=== PATIENT | female | born 1935 | race Caucasian/White ===

== ENCOUNTER → 2017-01-16 | Outpatient (CLI) | payer MEDICARE, BC ==
[~2017-01-16] MED LIST: ALBUTEROL17 GM INH; ATACAND PO; EFFEXOR PO; SKELAXIN PO; VICODIN 5/500 T1 TAB PO
--- NOTE | ~2017-01-16 | US128 ---
[id number] [facility] [address] [place], [place] [address] [id number] O MR#: [id number] [facility] #: [id number] NAME: CHANDA ALMAZAN : 1935 SEX: F STUDY DATE/TIME: 01/16/2017 13:46 UNIT: [facility] ROOM: STUDY DESCRIPTION: Thyroid Attending Physician: Jerica Rojas M.D. Referring Physician: Jerica Rojas M.D. Ordering Physician: Jerica Rojas M.D. Primary Care Physician: Jerica Rojas M.D. MEDICAL IMAGING REPORT This report is preliminary unless electronic signature is present EXAM Thyroid ultrasound. INDICATIONS Difficulty swallowing and neck pain. Nodule seen on ultrasound from 2008. TECHNIQUE Rendon-scale and color Doppler sonographic images were obtained through the thyroid gland. FINDINGS Right lobe of the thyroid gland is enlarged measuring 1.6 x 5 x 2.2 cm and left lobe measuring 1.7 x 4.5 x 2.5 cm. Isthmus measures up to a centimeter in thickness. Thyroid parenchyma is heterogeneous. There is a solid nodule seen within the superior pole of the right lobe of thyroid gland measuring 7 x 8 x 7 mm. More inferiorly, there is a dominant solid nodule measuring 1.1 x 1.3 x 1.5 cm, and medially, there is an iso to mildly hyperechoic nodule with a hypoechoic rim measuring 7 x 6 x 4 mm. Within the left lobe of the thyroid gland, there is a predominantly cystic nodule measuring 7 x 8 x 5 mm. There is a solid nodule measuring up to 1.3 x 1.4 x 1 cm. It is essentially isoechoic to thyroid parenchyma with a hypoechoic rim. Deep to this nodule, principal archaeologist measures an additional nodule, which measures up to 1.5 x 1.5 x 1.2 cm. IMPRESSION 1. The patient has multiple thyroid nodules. The dominant nodule within the right lobe of the thyroid gland measures 1.1 x 1.3 x 1.5 cm. It was present on the prior exam from November 2008. I suspect it really is not significantly changed in size when compared to that examination. An additional 2 nodules within the right lobe of the thyroid gland were not clearly identified on prior study and do not meet size criteria for percutaneous sampling. I would suggest short-term sonographic followup in 6 months to document stability and this will also allow surveillance of the mixed solid and cystic nodule within the superior pole of the left lobe of thyroid gland. 2. There are 2 thyroid nodules immediately adjacent to 1 another within the inferior pole of the left lobe of thyroid gland. These were present on the prior study, but I think have increased in size. I would suggest further evaluation with FNA. Dictated by... Jeannette Freed M.D. THIS IS AN ELECTRONICALLY VERIFIED REPORT Jeannette Freed M.D. at 01/17/2017 4:44 PM AFF/pc TD: 01/17/2017 10:48 JOB #: [id number] MEDICAL IMAGING REPORT COPY
--- NOTE | ~2017-01-16 | MY11 ---
[facility] A Service of [facility] RADIOLOGY TEXT RESULTS PATIENT: CHANDA ALMAZAN LOCATION: [facility] #: [id number] : 33 UNIT #: [id number] AGE: [address]: Jerica Rojas MD SEX: F ORDER DR: [id number] [place], [place] [address] [id number] O MR#: [id number] Acc #: [id number] NAME: CHANDA ALMAZAN : 1935 SEX: F STUDY DATE/TIME: 01/16/2017 13:36 UNIT: [facility] ROOM: STUDY DESCRIPTION: MY Mammogram Screening Dig Aj Attending Physician: Jerica Rojas M.D. Referring Physician: Jerica Rojas M.D. Ordering Physician: Jerica Rojas M.D. Primary Care Physician: Jerica Rojas M.D. MEDICAL IMAGING REPORT This report is preliminary unless electronic signature is present EXAM Digital screening mammogram with CAD. DATE OF EXAM 01/16/2017 INDICATION Routine screening. PROCEDURE Bilateral CC and MLO views obtained on a digital mammography unit. FDA-approved CAD device utilized. COMPARISON 06/25/2015 FINDINGS Scattered fibroglandular density. No dominant mass or suspicious calcification. IMPRESSION Negative screening mammograms. Screen interval in 1 year is suggested. BIRADS B1-N, negative. Patients over the age of 40 are entered into a reminder system with target due date for the next mammogram. A result letter will also be sent to the patient. BIRADS: 1 Negative. [facility] A Service of [facility] RADIOLOGY TEXT RESULTS PATIENT: CHANDA ALMAZAN LOCATION: [facility] #: [id number] : 33 UNIT #: [id number] AGE: [address]: Jerica Rojas MD SEX: F ORDER DR: Dictated by... Gui Maldonado M.D. THIS IS AN ELECTRONICALLY VERIFIED REPORT Gui Maldonado M.D. at 01/17/2017 7:08 AM [place] TD: 01/16/2017 16:43 JOB #: [id number] MEDICAL IMAGING REPORT COPY
== END | disposition home or self-care (01) ==
LOC: CWCC 13:12
DX: Z12.31 Encounter for screening mammogram for malignant neoplasm of breast (principal); E04.2 Nontoxic multinodular goiter
CPT/HCPCS: 76536; G0202